=== PATIENT | female | born 1975 | race African-American/Black ===

== ENCOUNTER 2022-01-22 23:52 | Emergency (ER) | payer BC ==
[2022-01-23] MEDS ORDERED: Mag-Al Plus 1200 MG/1200 MG/120 MG/30 ML UDCUP ONE (00:20)
[2022-01-23] MEDS ORDERED: Famotidine 20 MG TAB ONE (00:38)
== END 2022-01-23 01:01 | disposition home or self-care (01) ==
LOC: CSHERS 23:52
DX: K21.00 Gastro-esophageal reflux disease with esophagitis, without bleeding (principal); I10 Essential (primary) hypertension; Z79.899 Other long term (current) drug therapy
CPT/HCPCS: 87081; 87430; 99284